=== PATIENT | female | born 1970 | race Caucasian/White ===

== ENCOUNTER 2022-01-20 07:55 | Outpatient (CLI) | payer BC | END 2022-01-20 07:56 | disposition home or self-care (01) | LOC: CSHMAMMO 07:55 | PROVIDERS: ATTEND Family Medicine | DX: Z12.31 Encounter for screening mammogram for malignant neoplasm of breast (principal); Z98.82 Breast implant status | CPT/HCPCS: 77063; 77067 ==

== ENCOUNTER 2022-08-11 12:23 | Outpatient (CLI) | payer BC ==
[~2022-08-11 12:23] MED LIST: Magnevist 469MG/ML 20 ML VIAL ONE
== END 2022-08-11 12:24 | disposition home or self-care (01) ==
LOC: CSHMRI 12:23
PROVIDERS: ATTEND Physician Assistant
DX: H90.41 Sensorineural hearing loss, unilateral, right ear, with unrestricted hearing on the contralateral side (principal)
CPT/HCPCS: 70553

== ENCOUNTER 2023-03-11 10:11 | Outpatient (CLI) | payer BC | END 2023-03-11 10:12 | disposition home or self-care (01) | LOC: CSHMAMMO 10:11 | PROVIDERS: ATTEND Obstetrics & Gynecology | DX: Z12.31 Encounter for screening mammogram for malignant neoplasm of breast (principal) | CPT/HCPCS: 77063; 77067 ==

== ENCOUNTER 2025-03-17 12:37 | Outpatient (CLI) | payer BC | END 2025-03-17 12:38 | disposition home or self-care (01) | LOC: CSHMAMMO 12:37 | PROVIDERS: ATTEND Family Medicine | DX: Z12.31 Encounter for screening mammogram for malignant neoplasm of breast (principal); Z98.890 Other specified postprocedural states | CPT/HCPCS: 77063; 77067 ==